=== PATIENT | female | born 1930 | race Caucasian/White ===

== ENCOUNTER 2017-05-25 11:09 | Outpatient (CLI) | payer MEDICARE | END 2017-05-25 11:10 | disposition home or self-care (01) | LOC: DI 11:09 | PROVIDERS: ATTEND Internal Medicine Cardiovascular Disease | DX: I05.0 Rheumatic mitral stenosis (principal); I77.810 Thoracic aortic ectasia | CPT/HCPCS: 93306 ==

== ENCOUNTER 2017-08-31 17:23 | Outpatient (CLI) | payer MEDICARE | END 2017-08-31 17:24 | disposition short-term general hospital (02) | LOC: EMS 17:23 | PROVIDERS: ATTEND Surgery | DX: M25.552 Pain in left hip (principal); W18.39XA Other fall on same level, initial encounter; Y93.E9 Activity, other interior property and clothing maintenance; Y92.000 Kitchen of unspecified non-institutional (private) residence as the place of occurrence of the external cause | CPT/HCPCS: A0425; A0427 ==

== ENCOUNTER 2017-09-28 11:13 | Outpatient (CLI) | payer MEDICARE ==
[2017-09-28 18:33] LABS: CALCIUM 8.6 mg/dL (8.5-10.3); CREATININE 0.8 mg/dL (0.4-1.0); POTASSIUM 3.9 mmol/L (3.5-5.0)
== END 2017-09-28 11:14 | disposition home or self-care (01) ==
LOC: LAB.S 11:13
PROVIDERS: ATTEND Nurse Practitioner Family
DX: I10 Essential (primary) hypertension (principal); Z79.899 Other long term (current) drug therapy
CPT/HCPCS: 36415; 80048